=== PATIENT | female | born 1980 ===

== ENCOUNTER 2018-01-06 19:30 | Inpatient (IN) | payer BC ==
[~2018-01-06] VITALS: Ht 157.5 cm; Wt 79.1 kg
[2018-01-06] MEDS ORDERED: KETOROLAC TROMETHAMINE 15 MG INJ IV ONE (20:45)
[2018-01-06] MEDS ORDERED: METOCLOPRAMIDE HCL 10 MG/2 ML VIAL IV ONE (20:45)
[2018-01-06] MEDS ORDERED: METOCLOPRAMIDE HCL 10 MG TABLET ONE (20:55)
[2018-01-06] MEDS ORDERED: KETOROLAC TROMETHAMINE 30 MG INJ ONE (20:55)
[2018-01-06] MEDS ORDERED: METOCLOPRAMIDE HCL 10 MG/2 ML VIAL ONE (20:57)
[2018-01-06 21:07] LABS: BASOPHILS # (AUTO) 0.1 K/uL (0.0-8.0); BASOPHILS % (AUTO) 0.6 % (0.0-2.0); HEMATOCRIT 39.1 % (31.2-41.9); HEMOGLOBIN 12.8 g/dL (10.9-14.3); LYMPHOCYTES # (AUTO) 2.1 K/uL (20.0-40.0); LYMPHOCYTES % (AUTO) 12.3 % (20.5-51.5); MEAN CORPUSCULAR HEMOGLOBIN 26.1 uug (24.7-32.8); MEAN CORPUSCULAR HGB CONC 33 g/dL (32.3-35.6); MONOCYTES # (AUTO) 1.2 K/uL (2.0-10.0); MONOCYTES % (AUTO) 6.8 % (0.0-11.0); NEUTROPHILS # (AUTO) 13.8 K/uL (1.8-8.9); NEUTROPHILS % (AUTO) 80.3 % (38.5-71.5); PLATELET COUNT (AUTO) 270 K/uL (179-408); RED BLOOD CELL COUNT(AUTO) 4.89 MIL/uL (3.63-4.92); WHITE BLOOD COUNT (AUTO) 17.2 K/uL (3.8-11.8)
[2018-01-06 21:16] LABS: CREATININE 0.7 mg/dL (0.6-1.3); POTASSIUM 3.6 mmol/L (3.5-5.1)
[2018-01-06 21:21] LABS: BILIRUBIN,DIRECT 0.1 mg/dL (0.0-0.2); BILIRUBIN,TOTAL 0.5 mg/dL (0.2-1.0); TOTAL PROTEIN, SERUM 7.7 g/dL (6.4-8.2)
[2018-01-06] MEDS ORDERED: CEFAZOLIN 1 G in IV DEXTROSE 5% 50 ML IV ONE (22:15)
[2018-01-06] MEDS ORDERED: CEFAZOLIN 1 G VIAL ONE (22:19)
[2018-01-06] MEDS ORDERED: MORPHINE SULFATE 2 MG/1 ML DISP.SYRIN IV PRN (23:30)
[2018-01-06] MEDS ORDERED: ONDANSETRON 4 MG/2 ML VIAL IV PRN (23:30)
[2018-01-07] VITALS (9 sets, daily range): BP systolic 112–132; BP diastolic 65–82
[2018-01-07] MEDS ORDERED: METRONIDAZOLE 500 MG/NS 100ML 500 MG in PREMIXED 1 EACH IV ONE ×2
[2018-01-07] MEDS: IV NS 1000 ML 1,000 ML IV PRN ×3 (00:15→21:49)
[2018-01-07] MEDS ORDERED: LEVOFLOXACIN 750MG/D5W 150 ML IV ONE (00:33)
[2018-01-07] MEDS ORDERED: METRONIDAZOLE 500 MG/NS 100ML 100 ML IV ONE (00:33)
[2018-01-07 00:35] LABS: *BILIRUBIN,URIN NEGATIVE (NEGATIVE); *BLOOD, URINE Trace-lysed (NEGATIVE); *CLARITY,URINE CLOUDY (CLEAR); *COLOR,URINE YELLOW (YELLOW); *KETONES,URINE NEGATIVE (NEGATIVE); *PROTEIN,URINE 1+ (NEGATIVE); *UROBILINOGEN,URINE 0.2 E.U./dl (NORMAL); LEUKOCYTE ESTERASE ,URINE NEGATIVE (NEGATIVE); NITRITE, URINE NEGATIVE (NEGATIVE); PH,URINE 5.5 (5.0-8.0)
[2018-01-07 00:46] LABS: UGLUCOSE 2+ (NEGATIVE)
[2018-01-07 00:58] LABS: BACTERIA,URINE NONE SEEN /HPF (NONE SEEN); MUCUS,URINE FEW /LPF (0-FEW); SQUAMOUS EPITHELIAL CELL,UR MANY /HPF (NONE SEEN); URINE AMORPHOUS URATE MANY /HPF
[2018-01-07] MEDS ORDERED: LEVOFLOXACIN 750MG/D5W 750 MG in PREMIXED 1 EACH IV SCH (01:00)
[2018-01-07] MEDS ORDERED: BUPIVACAINE 0.25% 30 ML VIAL ONE (05:51)
[2018-01-07] MEDS ORDERED: LIDOCAINE 1%-EPI 1:100,000 20 ML VIAL ONE ×2 (05:52→07:47)
[2018-01-07 06:30] LABS: CREATININE 0.7 mg/dL (0.6-1.3); MAGNESIUM 1.8 mg/dL (1.8-2.4); PHOSPHOROUS 2.7 mg/dL (2.5-4.9); POTASSIUM 3.4 mmol/L (3.5-5.1)
[2018-01-07 06:38] LABS: BASOPHILS % (AUTO) 0.2 % (0.0-2.0); EOSINOPHILS % (AUTO) 0.1 % (0.0-7.0); HEMATOCRIT 37.4 % (31.2-41.9); HEMOGLOBIN 12.1 g/dL (10.9-14.3); LYMPHOCYTES % (AUTO) 11.9 % (20.5-51.5); MEAN CORPUSCULAR HEMOGLOBIN 25.7 uug (24.7-32.8); MEAN CORPUSCULAR HGB CONC 32 g/dL (32.3-35.6); MEAN CORPUSCULAR VOLUME 79.6 fL (75.5-95.3); MONOCYTES # (AUTO) 1.3 K/uL (2.0-10.0); NEUTROPHILS # (AUTO) 13.1 K/uL (1.8-8.9); NEUTROPHILS % (AUTO) 79.8 % (38.5-71.5); PLATELET COUNT (AUTO) 250 K/uL (179-408); WHITE BLOOD COUNT (AUTO) 16.4 K/uL (3.8-11.8)
[2018-01-07 06:39] LABS: THYROID STIMULATING HORMONE 7.718 mIU/mL (0.358-3.740)
[2018-01-07] MEDS ORDERED: MIDAZOLAM HCL 2 MG/2 ML VIAL ONE (06:54)
[2018-01-07] MEDS ORDERED: FENTANYL CITRATE 100 MCG/2 ML AMPUL ONE ×3 (06:56→08:41)
[2018-01-07] MEDS ORDERED: ROCURONIUM BROMIDE 50 MG/5 ML VIAL ONE (06:56)
[2018-01-07] MEDS ORDERED: SUCCINYLCHOLINE CHLORIDE 200 MG/10 ML VIAL ONE (06:56)
[2018-01-07] MEDS ORDERED: SEVOFLURANE 250 ML BOTTLE ONE (07:53)
[2018-01-07] MEDS ORDERED: ONDANSETRON 4 MG/2 ML VIAL ONE (08:09)
[2018-01-07] MEDS ORDERED: MORPHINE SULFATE 2 MG/1 ML DISP.SYRIN IV PRN (09:00)
[2018-01-07] MEDS: PANTOPRAZOLE SODIUM 40 MG VIAL IV SCH (09:00)
[2018-01-07] MEDS ORDERED: MORPHINE SULFATE 4 MG/1 ML DISP.SYRIN IV PRN (11:00)
[2018-01-07] MEDS ORDERED: POTASSIUM CHLORIDE 20 MEQ TAB.PRT.SR PO ONE (14:00)
[2018-01-07] MEDS ORDERED: NEOSTIGMINE METHYLSULFATE 10 MG/10 ML VIAL IV ONE (14:59)
[2018-01-07] MEDS ORDERED: IV NORMAL SALINE 1000 ML BAG IV ONE (14:59)
[2018-01-07] MEDS ORDERED: ONDANSETRON 4 MG/2 ML VIAL IV ONE (14:59)
[2018-01-07] MEDS ORDERED: PROPOFOL 200 MG/20 ML BOTTLE IV ONE (14:59)
[2018-01-07] MEDS ORDERED: GLYCOPYRROLATE 0.2 MG/ML VIAL MC ONE (14:59)
[2018-01-07] MEDS: METRONIDAZOLE 500 MG/NS 100ML 500 MG in PREMIXED 1 EACH IV SCH ×2 (15:46→21:07)
[2018-01-07] MEDS: CEFAZOLIN 1 G in PREMIXED 1 EACH IV SCH ×2 (15:46→21:48)
[2018-01-07] MEDS: OXYCODONE/APAP 5-325 MG TABLET PO PRN (21:14)
[2018-01-08 04:17] VITALS: BP 105/61
[2018-01-08] MEDS: METRONIDAZOLE 500 MG/NS 100ML 500 MG in PREMIXED 1 EACH IV SCH ×2 (05:42→13:40)
[2018-01-08] MEDS: CEFAZOLIN 1 G in PREMIXED 1 EACH IV SCH ×2 (06:32→13:11)
[2018-01-08 07:32] LABS: CREATININE 0.6 mg/dL (0.6-1.3); POTASSIUM 3.9 mmol/L (3.5-5.1)
[2018-01-08] MEDS: PANTOPRAZOLE SODIUM 40 MG VIAL IV SCH (08:25)
[2018-01-08] MEDS: OXYCODONE/APAP 5-325 MG TABLET PO PRN ×2 (08:34→14:39)
[2018-01-08 12:00] VITALS: BP 108/63
[2018-01-08] MEDS ORDERED: CEPH-570 PO (13:43)
[2018-01-09] MEDS ORDERED: PANTOPRAZOLE SODIUM 40 MG TABLET.DR PO SCH (07:00)
== END 2018-01-08 15:00 | disposition home or self-care (01) | DRG 340 ==
LOC: ER 19:34 → MED 23:00
PROC: 0DTJ4ZZ Resection of Appendix, Percutaneous Endoscopic Approach (ICD-10-PCS; principal; 2018-01-07 06:45)
DX: K35.3 Acute appendicitis with localized peritonitis (principal); K76.0 Fatty (change of) liver, not elsewhere classified; E66.9 Obesity, unspecified; Z68.31 Body mass index [BMI] 31.0-31.9, adult
CPT/HCPCS: 36415; 70030-TC; 71045; 83690; 83735; 84100; 84443; 84703; 85025; 85730; 87070; 87075; 87086; A4663; C9113; J0330; J0690; J1885; J1956; J2250; J2270; J2405; J2710; J2765; J3010; J3490; J7030; J8597

== ENCOUNTER 2020-11-26 07:12 | Outpatient (CLI) | payer BC ==
[~2020-11-26 07:12] MED LIST: CEPH-570 PO
== END 2020-11-26 23:59 | disposition home or self-care (01) ==
LOC: LAB 07:12
PROVIDERS: ATTEND Ophthalmology
DX: Z01.812 Encounter for preprocedural laboratory examination (principal); Z20.822 Contact with and (suspected) exposure to COVID-19

== ENCOUNTER 2020-11-27 06:38 | Day surgery (SDC) | payer BC ==
[2020-11-27] MEDS ORDERED: KETOROLAC 0.5% OPHT DROP 3 ML BOTTLE ONE (06:48)
[2020-11-27] MEDS ORDERED: TROPICAMIDE 1% OPHT DROP 3 ML BOTTLE ONE (06:50)
[2020-11-27] MEDS ORDERED: CIPROFLOXACIN 0.3% OPHT DROP 2.5 ML BOTTLE ONE (06:50)
[2020-11-27] MEDS ORDERED: PHENYLEPHRINE 2.5% OPHT DROP 2 ML BOTTLE ONE (06:51)
[2020-11-27] MEDS ORDERED: CYCLOPENTOLATE 1% OPHT DROP 2 ML BOTTLE ONE (06:54)
[2020-11-27] MEDS ORDERED: BALANCED SALT IRRIG SOLN COMB1 500 ML, EPINEPHRINE-PF 1:1000 0.5 MG IO ONE (07:00)
[2020-11-27] MEDS ORDERED: MOXIFLOXACIN HCL 3 ML OPHT DROPS ONE (07:24)
[2020-11-27] MEDS ORDERED: LIDOCAINE-MPF 2% 5 ML VIAL ONE (07:24)
[2020-11-27] MEDS ORDERED: TIMOLOL MALEATE 0.5% OPHT DROP 5 ML BOTTLE ONE (07:24)
[2020-11-27] MEDS ORDERED: NEO/POLYMYX B/DEXAME OPHT OINT 3.5 GM TUBE ONE (07:24)
[2020-11-27] MEDS ORDERED: BALANCED SALT IRRIG SOLN COMB2 15 ML IRRIG.SOLN ONE (07:25)
[2020-11-27] MEDS ORDERED: HYALURONATE SODIUM 12.8 MG/0.8 ML DISP.SYRIN ONE (07:25)
[2020-11-27] MEDS ORDERED: BALANCED SALT IRRIG SOLN COMB1 500 ML ONE (07:25)
[2020-11-27] MEDS ORDERED: BUPIVACAINE PF 0.5% 30 ML VIAL ONE (07:25)
[2020-11-27] MEDS ORDERED: ACETYLCHOLINE CHLORIDE 1% OPHT 1 EA KIT ONE (07:25)
[2020-11-27] MEDS ORDERED: HYALURONIDASE,OVINE 200 UNITS/ML VIAL ONE (07:25)
[2020-11-27 07:34] LABS: *BILIRUBIN,URIN NEGATIVE (NEGATIVE); *BLOOD, URINE NEGATIVE (NEGATIVE); *CLARITY,URINE CLEAR (CLEAR); *COLOR,URINE YELLOW (YELLOW); *KETONES,URINE NEGATIVE (NEGATIVE); *UROBILINOGEN,URINE 0.2 E.U./dl (NORMAL); LEUKOCYTE ESTERASE ,URINE NEGATIVE (NEGATIVE); NITRITE, URINE NEGATIVE (NEGATIVE); PH,URINE 5.5 (5.0-8.0); UGLUCOSE NEGATIVE (NEGATIVE)
[2020-11-27 07:35] LABS: *URINE HCG, QUAL NEG (NEGATIVE)
[2020-11-27] MEDS ORDERED: FENTANYL CITRATE 100 MCG/2 ML AMPUL ONE (07:54)
== END 2020-11-27 10:05 | disposition home or self-care (01) ==
LOC: DS 06:38
PROVIDERS: ATTEND Ophthalmology
DX: E11.36 Type 2 diabetes mellitus with diabetic cataract (principal); H25.89 Other age-related cataract; I10 Essential (primary) hypertension; E03.9 Hypothyroidism, unspecified; Z79.899 Other long term (current) drug therapy; Z98.890 Other specified postprocedural states
CPT/HCPCS: 66984; 81003; 82962 ×2; 84703; J0171; J3010; J3471; J3490 ×2; J7321; V2632; A4663; J7030